=== PATIENT | female | born 2000 | race Caucasian/White ===

== ENCOUNTER 2023-04-29 08:05 | Outpatient (CLI) | payer BC, SELFPAY ==
[2023-04-29 12:48] LABS: SARS PCR* Negative SARS-CoV-2 (Negative); Strep A DNA Probe* NOT DETECTED (Not Detectd)
== END 2023-04-29 08:06 | disposition home or self-care (01) ==
PROVIDERS: Visit Provider Family Medicine
DX: H92.09 Otalgia, unspecified ear (principal)
CPT/HCPCS: 87635; 87651